=== PATIENT | female | born 1960 | race Caucasian/White ===

== ENCOUNTER 2021-07-20 23:15 | Emergency (ER) | payer BC ==
[~2021-07-20] VITALS: Ht 175.3 cm; Wt 81.6 kg
--- NOTE | 2021-07-20 23:40 | NUR ---
PT IN CT. PT ARRIVED IN C-COLLAR
[2021-07-21] MEDS ORDERED: piperacillin/tazo 3.375gm/50ml 50 ML IV STA (01:22)
--- NOTE | 2021-07-21 01:25 | NUR ---
DR ORR REMOVED BANDAGE ON FOREHEAD AND REVEALED MASSIVE LACERATION ON FOREHEAD.
--- NOTE | 2021-07-21 01:30 | NUR ---
DR ORR REMOVED C-COLLAR
[2021-07-21] MEDS ORDERED: ondansetron/PF 4mg/2ml inj IV ONE (01:35)
[2021-07-21] MEDS ORDERED: morphine 4 MG/ML inj SYRINge IM ONE (01:35)
[2021-07-21] MEDS ORDERED: morphine 4 MG/ML inj SYRINge IV ONE (01:35)
[2021-07-21 02:20] LABS: BASOPHILS % (AUTO) 0.2 % (0-1); EOSINOPHILS % (AUTO) 0.1 % (0-6); HEMATOCRIT 41.9 % (35.0-45.0); HEMOGLOBIN 14.1 g/dl (12.0-16.0); LYMPHOCYTES # (AUTO) 2.3 X10'3 (1.1-4.8); LYMPHOCYTES % (AUTO) 13.8 % (21-51); MEAN CORPUSCULAR HEMOGLOBIN 31.2 PG (27.0-31.0); MEAN CORPUSCULAR HGB CONC 33.6 g/dL (33.0-36.5); MEAN CORPUSCULAR VOLUME 92.9 FL (78-98); MEAN PLATELET VOLUME 7.5 FL (7.4-10.4); MONOCYTES # (AUTO) 0.7 X10'3 (0-0.9); MONOCYTES % (AUTO) 4.2 % (2-12); NEUTROPHILS # (AUTO) 13.9 X10'3 (1.8-7.7); NEUTROPHILS % (AUTO) 81.7 % (42-75); PLATELET COUNT 308 X10'3 (140-440); RED BLOOD COUNT 4.51 X10'6 (4.20-5.60); RED CELL DISTRIBUTION WIDTH 13.1 % (11.5-14.5)
[2021-07-21 02:29] LABS: APTT 27 SECONDS (22-32)
[2021-07-21 02:31] LABS: ALANINE AMINOTRANSFERASE 95 U/L (12-78); ALBUMIN 3.9 G/DL (3.4-5.0); ALBUMIN/GLOBULIN RATIO 1.1 (1.1-1.5); ALKALINE PHOSPHATASE 62 IU/L (46-116); ANION GAP 14 (8-16); ASPARTATE AMINO TRANSFERASE 65 U/L (10-37); BILIRUBIN,TOTAL 0.3 MG/DL (0.1-1.0); BLOOD UREA NITROGEN 6 MG/DL (7-18); CALCIUM 8.5 MG/DL (8.5-10.1); CHLORIDE 99 MMOL/L (99-107); GLUCOSE 115 MG/DL (70-104); POTASSIUM 3.8 MMOL/L (3.5-5.1); SODIUM 136 MMOL/L (135-145); TOTAL CARBON DIOXIDE 22.9 MMOL/L (24-32); TOTAL PROTEIN 7.4 G/DL (6.4-8.2); eGFR > 90 ML/MIN
--- NOTE | 2021-07-21 03:21 | NUR ---
GAVE TELEPHONE REPORT TO VIV HOLLIS AT [facility]
[2021-07-21 03:45] VITALS: BP 131/88
== END 2021-07-21 03:49 | disposition short-term general hospital (02) ==
LOC: ER 23:16
DX: S02.85XA Fracture of orbit, unspecified, initial encounter for closed fracture (principal); S02.2XXA Fracture of nasal bones, initial encounter for closed fracture; S01.81XA Laceration without foreign body of other part of head, initial encounter; J32.8 Other chronic sinusitis; R79.1 Abnormal coagulation profile; I10 Essential (primary) hypertension; Z72.89 Other problems related to lifestyle; W18.39XA Other fall on same level, initial encounter; Y93.89 Activity, other specified; Y92.89 Other specified places as the place of occurrence of the external cause; Y99.8 Other external cause status
CPT/HCPCS: 12016; 36415; 70450; 70486; 71045; 72125; 80053; 85025; 85610; 85730; 93005; 96365; 96372; 96375; 99285; J2270; J2405; J2543; J7030